=== PATIENT | female | born 1955 | race Caucasian/White ===

== ENCOUNTER → 2024-10-10 10:44 | Outpatient (REF) | payer OTHER, SELFPAY | LOC: HWRAD 10:44 | PROVIDERS: ATTENDING PHYSICIAN Family Medicine | DX: M85.89 Other specified disorders of bone density and structure, multiple sites (principal); Z87.891 Personal history of nicotine dependence; Z12.31 Encounter for screening mammogram for malignant neoplasm of breast | CPT/HCPCS: 71271; 77080 ==

== ENCOUNTER 2024-12-11 06:28 | Day surgery (SDC) | payer OTHER, SELFPAY | END 2024-12-11 14:09 | disposition home or self-care (01) | LOC: GI 06:28 | PROVIDERS: ATTENDING PHYSICIAN Internal Medicine Gastroenterology | DX: Z12.11 Encounter for screening for malignant neoplasm of colon (principal); K57.30 Diverticulosis of large intestine without perforation or abscess without bleeding; K64.0 First degree hemorrhoids; D12.5 Benign neoplasm of sigmoid colon; D12.2 Benign neoplasm of ascending colon; D12.3 Benign neoplasm of transverse colon; D12.0 Benign neoplasm of cecum | CPT/HCPCS: 45385; 45381; 45380; 88305 ==

== ENCOUNTER 2025-04-02 06:04 | Day surgery (SDC) | payer OTHER, SELFPAY ==
[2025-04-02 07:40] VITALS: BP 108/63; BMI 20.4
[2025-04-02 07:52] VITALS: BMI 20.4
[2025-04-02 09:30] VITALS: BP 93/65
[2025-04-02 09:45] VITALS: BP 73/50
[2025-04-02 09:54] VITALS: BP 92/59
== END 2025-04-02 10:03 | disposition home or self-care (01) ==
LOC: SDS 06:04
PROVIDERS: ATTENDING PHYSICIAN Internal Medicine Gastroenterology
DX: D12.2 Benign neoplasm of ascending colon (principal); K64.0 First degree hemorrhoids
CPT/HCPCS: 45390; 88305